=== PATIENT | male | born 1940 | race Caucasian/White ===

== ENCOUNTER 2021-11-24 18:38 | Inpatient (IN) | payer MEDICARE, OTHER ==
[~2021-11-24] VITALS: Ht 193 cm; Wt 101.2 kg
[2021-11-24] MEDS ORDERED: NITROGLYCERIN OINT 1 GM PACKET TP ONE ×2 (18:45→19:15)
[2021-11-24] MEDS ORDERED: METOPROLOL TARTRATE 50 MG TABLET PO ONE (18:45)
--- NOTE | 2021-11-24 18:45 | NUR ---
Patient seen by MD at the entrance door. placed on gurney 10 minutes later.
--- NOTE | 2021-11-24 19:03 | NUR ---
Report given to incoming shift who will continue with care plan and medications ordered.
[2021-11-24 19:15] LABS: HEMATOCRIT 43.5 % (36.7-47.1); MEAN CORPUSCULAR HEMOGLOBIN 32.4 uug (23.8-33.4); MEAN CORPUSCULAR VOLUME 96.5 fL (73.0-96.2); PLATELET COUNT (AUTO) 131 K/uL (152-348)
[2021-11-24] MEDS ORDERED: METOPROLOL TARTRATE 50 MG TABLET ONE (19:15)
[2021-11-24 19:16] LABS: CARBON DIOXIDE 22 mmol/L (21-32); CHLORIDE 100 mmol/L (98-107); CREATININE 1.1 mg/dL (0.6-1.3); GLUCOSE 92 mg/dL (74-106); POTASSIUM 3.8 mmol/L (3.5-5.1); UREA NITROGEN, BLOOD 13 mg/dL (7-18)
--- NOTE | 2021-11-24 19:58 | NUR ---
pt son at bedside.
--- NOTE | 2021-11-24 20:55 | NUR ---
Called [facility] to page Radha Plaza NP.
--- NOTE | 2021-11-24 21:05 | NUR ---
Covid swab done and sent to lab.
[2021-11-24] MEDS ORDERED: ONDANSETRON 4 MG/2 ML VIAL IV PRN (21:15)
[2021-11-24] MEDS ORDERED: MORPHINE SULFATE 2 MG/1 ML DISP.SYRIN IV PRN (21:15)
[2021-11-24] MEDS ORDERED: ACETAMINOPHEN 325 MG TABLET PO PRN (21:15)
[2021-11-24] MEDS ORDERED: REMEDY ESSENTIAL ZINC PASTE 113 GM TP PRN (21:15)
[2021-11-24] MEDS ORDERED: ENOXAPARIN SODIUM 100 MG/ML DISP.SYRIN SQ ONE ×2 (21:15→23:18)
[2021-11-24] MEDS ORDERED: MAGNESIUM HYDROXIDE 30 ML LIQUID UDC PO PRN (21:15)
[2021-11-24] MEDS ORDERED: METO50TA16 PO (21:27)
[2021-11-24] MEDS ORDERED: ASPI81TA31 PO (21:27)
[2021-11-24] MEDS ORDERED: DEXL60CA3 PO (21:27)
[2021-11-24] MEDS ORDERED: OLME40TA12 PO (21:27)
[2021-11-24] MEDS ORDERED: FOLI1TAB94 PO (21:27)
[2021-11-24] MEDS ORDERED: EZET1TAB31 PO (21:27)
--- NOTE | 2021-11-24 21:28 | NUR ---
Pt takes "Epherizone" 25mg daily. Medication not available on drug list.
--- NOTE | 2021-11-24 21:30 | NUR ---
Patient able to ambulate to the bathroom with steady gait.
--- NOTE | 2021-11-24 21:43 | NUR ---
Report given to ZORAN Brady. Patient will be placed to Room 312.
--- NOTE | 2021-11-24 21:45 | NUR ---
ODALIS Plaza at bedside.
--- NOTE | 2021-11-24 22:15 | NUR ---
ADMITTED PATIENT IN TELE FLOOR UNDER THE CARE OF CLOTILDE HOOK, ALERT ORIENTED, CONTINENT, NO SOB NO CHEST PAIN, TELE MONITOR SINUS RHYTHM, CONTINUE TO MONITOR.
--- NOTE | 2021-11-24 22:25 | NUR ---
Patient transported to Room 312 via wheelchair, without any incident. VSS. NAD. Addendum: 11/24/21 at 2226 by HARI Belongings with patient.
[2021-11-24] MEDS ORDERED: DIAZEPAM 5 MG TABLET PO PRN (22:30)
[2021-11-24 22:33] VITALS: BP 145/60
[2021-11-25 00:17] VITALS: BP 109/48
--- NOTE | 2021-11-25 01:24 | NUR ---
PATIENT CURRENT TROPONIN LEVEL 360, PATIENT HAS NO SYMPTOMS, NO CHEST PAIN, NO SOB, EKG FROM ER WNL, TELE READING SINUS 70, PATIENT ASLEEP BUT AROUSABLE, NOTIFY ISAIAS PATTERSON CAD OPERATOR AWAITING FOR RESULTS.
--- NOTE | 2021-11-25 01:45 | NUR ---
CALLED EXCHANGE TO ROMAINE PATTERSON, AWAITING FOR RESPONSE.
--- NOTE | 2021-11-25 02:23 | NUR ---
ISAIAS PATTERSON RETURNED THE PAGE WITH NO NEW ORDER AT THIS TIME. PATIENT ASLEEP, TELE MONITOR SINUS RHYTHM, ASYMPTOMATIC, CONT TO MONITOR.
[2021-11-25 04:42] VITALS: BP 106/48
--- NOTE | 2021-11-25 06:36 | NUR ---
PATIENT ALERT ORIENTED, NO SOB NO CHEST PAIN, COMPLAIN OF HEADACHES, ASKED FOR PAIN MEDS, GIVEN TYLENOL 650MG PO, SKIN WARM AND DRY TO TOUCH, NO DIZZINESS. CALL LIGHT WITHIN REACH, CONT TO MONITOR.
[2021-11-25 06:41] LABS: HEMATOCRIT 40.7 % (36.7-47.1); MEAN CORPUSCULAR HEMOGLOBIN 32.7 uug (23.8-33.4); MEAN CORPUSCULAR VOLUME 95.8 fL (73.0-96.2); PLATELET COUNT (AUTO) 126 K/uL (152-348)
[2021-11-25] MEDS ORDERED: PANTOPRAZOLE SODIUM 40 MG TABLET.DR PO SCH (07:00)
--- NOTE | 2021-11-25 07:02 | NUR ---
PATIENT HEADACHES IS BETTER, IN BED RESTING.
[2021-11-25 07:18] LABS: BILIRUBIN,DIRECT 0.2 mg/dL (0.0-0.2); BILIRUBIN,TOTAL 0.6 mg/dL (0.2-1.0); TOTAL PROTEIN, SERUM 6.4 g/dL (6.4-8.2)
--- NOTE | 2021-11-25 08:00 | NUR ---
AWAKE ALERT AND ORIENTED DENIES CHEST PAIN STATED FEELS COMFORTABLE CALL LIGHTS AND PERSONAL BELONGINGS ARE WITHIN EASY REACH AT THIS TIME WILL CONTINUE TO OBSERVE.
[2021-11-25 08:04] LABS: CREATININE 1.1 mg/dL (0.6-1.3); PHOSPHOROUS 3.4 mg/dL (2.5-4.9); POTASSIUM 3.7 mmol/L (3.5-5.1)
[2021-11-25] MEDS ORDERED: ENOXAPARIN SODIUM 40 MG/0.4 ML DISP.SYRIN SQ SCH (09:00)
[2021-11-25] MEDS ORDERED: ASPIRIN 81 MG TAB.CHEW PO SCH ×2 (09:00)
[2021-11-25] MEDS ORDERED: EZETIMIBE 10 MG TABLET PO SCH (09:00)
[2021-11-25] MEDS ORDERED: METOPROLOL TARTRATE 50 MG TABLET PO SCH (09:00)
[2021-11-25] MEDS ORDERED: LOSARTAN POTASSIUM 50 MG TABLET PO SCH (09:00)
[2021-11-25] MEDS ORDERED: FOLIC ACID 1 MG TABLET PO SCH (09:00)
--- NOTE | 2021-11-25 09:00 | NUR ---
PATIENT SEEN AND EXAMINED BY DR CLOTILDE HOOK WITH NO NEW ORDERS AT THIS TIME .
[2021-11-25 11:49] VITALS: BP 139/61
[2021-11-25] MEDS ORDERED: TRAZ-182 PO (12:24)
[2021-11-25] MEDS ORDERED: CLOP75TA15 PO (12:24)
[2021-11-25] MEDS ORDERED: EPLE25TA10 PO (12:24)
[2021-11-25] MEDS ORDERED: SERT50TA PO (12:24)
--- NOTE | 2021-11-25 13:36 | NUR ---
PATIENT SEEN BY DR VILA AND STATED THAT PATIENT IS CLEAR TO GO HOME AND CLOTILDE ALSO SPOKE WITH PATIENT OVER THE PHONE AND THE PLAN IS THAT PATIENT WILL BE DISCHARGED TODAY HOME AWAITING FOR THE DISCHARGE ORDER.
--- NOTE | 2021-11-25 14:00 | NUR ---
PATIENT DISCHARGED PICKED UP HIS FRIEND ANASTASIYA IN SATISFACTORY CONDITION PATIENT WAS INSTRUCTED TO CALL FOR A FOLLOW UP APPOINTMENT WITH HIS PRIMARY DOCTOR WITHIN THEW NEXT ONE TO 2 WEEKS AND TO START PLAVIX TODAY PATIENT HAS A STOCK OF MEDICATIONS AT HOME ALSO NO FLYING UNTIL SEN BY HIS ASSEMBLY STOCK SUPERVISOR AND HE EXPRESSED UNDERSTANDING HEPLOCK REMOVED AND PATIENT ESCORTED TO HIS FRIENDS CAR.
[2021-11-25] MEDS ORDERED: ATORVASTATIN 20 MG TABLET PO SCH (21:00)
== END 2021-11-25 14:20 | disposition home or self-care (01) | DRG 190 ==
LOC: ER 18:40 → TELE3 21:34
PROVIDERS: ADMIT Nurse Practitioner Acute Care; ATTEND Nurse Practitioner Acute Care
DX: I21.4 Non-ST elevation (NSTEMI) myocardial infarction (principal); I16.9 Hypertensive crisis, unspecified; I25.10 Atherosclerotic heart disease of native coronary artery without angina pectoris; Z79.82 Long term (current) use of aspirin; Z87.11 Personal history of peptic ulcer disease; Z95.5 Presence of coronary angioplasty implant and graft; Z90.79 Acquired absence of other genital organ(s); Z90.49 Acquired absence of other specified parts of digestive tract; R10.32 Left lower quadrant pain; Z20.822 Contact with and (suspected) exposure to COVID-19
CPT/HCPCS: 36415; 71045; 83690; 83735; 84100; 84484; 85025; 93005; 93307; A4663; G0378; J1650

== ENCOUNTER 2022-04-03 17:17 | Emergency (ER) | payer MEDICARE, BC ==
[~2022-04-03] VITALS: Ht 193 cm; Wt 97.5 kg
[~2022-04-03 17:17] MED LIST: ASPI81TA31 PO; CLOP75TA15 PO; DEXL60CA3 PO; EPLE25TA10 PO; EZET1TAB31 PO; FOLI1TAB94 PO; METO50TA16 PO; OLME40TA12 PO; SERT50TA PO; TRAZ-182 PO
--- NOTE | 2022-04-03 17:50 | NUR ---
Pt had center CP radiated to neck and Left arm for 45 minutes about 1 hour SOCIAL WORK COORDINATOR. EKG done and given to MD. Labs drawn. Pt moved from hallway to room 4A
[2022-04-03 18:13] LABS: CARBON DIOXIDE 26 mmol/L (21-32); CHLORIDE 101 mmol/L (98-107); CREATININE 1.1 mg/dL (0.6-1.3); GLUCOSE 107 mg/dL (74-106); UREA NITROGEN, BLOOD 15 mg/dL (7-18)
[2022-04-03 18:15] LABS: HEMATOCRIT 45.5 % (36.7-47.1); MEAN CORPUSCULAR HEMOGLOBIN 33.5 uug (23.8-33.4); MEAN CORPUSCULAR VOLUME 99.4 fL (73.0-96.2); PLATELET COUNT (AUTO) 145 K/uL (152-348)
--- NOTE | 2022-04-03 19:33 | NUR ---
pt a/o denies pain at this time.
--- NOTE | 2022-04-03 21:22 | NUR ---
pt states he wants to go home, I relayed this information to Dr. Spicer. he states the pt will need to go ama. Dr. Spicer says he will be in with the pt shortly.
--- NOTE | 2022-04-03 22:03 | NUR ---
Patient does not wish to proceed with medical care recommended by Dr. Spicer. Patient given information related to possible complications, up to and including , which could occur as a result of leaving the hospital at this time. Patient verbalizes understanding of risks involved due to leaving against medical advice. Patient has signed AMA form. Lab reports were given to the pt.
[2022-04-03 22:05] VITALS: BP 150/70
[2022-04-03] MEDS ORDERED: HYDROMORPHONE 1 MG/1 ML DISP.SYRIN IV ONE (22:15)
== END 2022-04-04 08:38 | disposition left against medical advice (07) ==
LOC: ER 17:19
DX: R07.9 Chest pain, unspecified (principal); J98.11 Atelectasis; I25.10 Atherosclerotic heart disease of native coronary artery without angina pectoris; Z95.5 Presence of coronary angioplasty implant and graft; Z79.02 Long term (current) use of antithrombotics/antiplatelets
CPT/HCPCS: 36415; 71045; 84484; 85025; 93005